=== PATIENT | female | born 1985 | race Two or more races ===

== ENCOUNTER 2018-02-03 02:01 | Emergency (ER) | payer OTHER ==
[2018-02-03 02:23] VITALS: BP 117/79; PULSE 95; TEMP 98.3; BMI 35.4
[2018-02-03 02:25] LABS: URINE APPEARANCE CLEAR; URINE BILIRUBIN NEGATIVE (<2.0 mg/dL); URINE BLOOD NEGATIVE (NEGATIVE); URINE COLOR YELLOW; URINE GLUCOSE (UA) NEGATIVE (NEGATIVE); URINE KETONE NEGATIVE (NEGATIVE); URINE NITRITE NEGATIVE (NEGATIVE); URINE PROTEIN NEGATIVE (NEGATIVE); URINE UROBILINOGEN NEGATIVE mg/dL (0.2-1.0)
[2018-02-03 02:27] LABS: HCG,QUALITATIVE URINE NEGATIVE; URINE LEUK ESTERASE 1+ (NEGATIVE)
--- NOTE | 2018-02-03 02:29 | PDOC ---
History of Present Illness - General Chief Complaint: Pain, Acute Stated Complaint: ABD PAIN Time Seen by Provider: 02/03/18 02:13 History Source: Patient - History of Present Illness Initial Comments: 02/03/18 02:27 32 year old female with the rigth side pain x 1 days. denies NVD 02/03/18 04:12 Past History - Past Medical History Allergies/Adverse Reactions: Allergies Allergy/AdvReac Type Severity Reaction Status Date / Time No Known Allergies Allergy Verified 02/03/18 02:10 Home Medications: Ambulatory Orders Cephalexin Monohydrate [Keflex -] 500 mg PO BID #20 capsule 02/03/18 COPD: No - Suicide/Smoking/Psychosocial Hx Smoking History: Never smoked Review of Systems - Review of Systems Able to Perform ROS?: Yes Is the patient limited Lao proficient: No Constitutional: No: Symptoms Reported, See HPI, Chills, Diaphoresis, Fever, Loss of Appetite, Malaise, Night Sweats, Weakness, Weight Stable, Unintentional Wgt. Loss, Unexplained wgt Loss, Other ABD/GI: Yes: Abdominal cramping. No: Symptoms Reported, See HPI, Abdominal Distended, Abd. Pain w/ defecation, Blood Streaked Bowels, Constipated, Diarrhea , Difficulty Swallowing, Nausea, Poor Appetite, Poor Fluid Intake, Rectal Bleeding, Vomiting, Indigestion, Tarry Stools, Other *Physical Exam - Vital Signs Last Vital Signs Temp Pulse Resp BP Pulse Ox 98.3 F 95 H 18 117/79 99 02/03/18 02:10 02/03/18 02:10 02/03/18 02:10 02/03/18 02:10 02/03/18 02:10 - Physical Exam General Appearance: Yes: Appropriately Dressed Respiratory/Chest: positive: Lungs Clear, Normal Breath Sounds Gastrointestinal/Abdominal: positive: Normal Bowel Sounds, Tender (right upper quadrant tenderness), Soft Musculoskeletal: positive: Normal Inspection Extremity: positive: Normal Capillary Refill, Normal Inspection, Normal Range of Motion Integumentary: positive: Normal Color, Dry, Warm Neurologic: positive: Fully Oriented, Alert, Normal Mood/Affect ED Treatment Course - LABORATORY CBC & Chemistry Diagram: 02/03/18 03:08 02/03/18 03:08 Progress Note - Progress Note Progress Note: A : UTI P: CBC CMP UA UCX *DC/Admit/Observation/Transfer Diagnosis at time of Disposition: UTI (urinary tract infection) Qualifiers: Urinary tract infection type: acute cystitis Hematuria presence: without hematuria Qualified Code(s): N30.00 - Acute cystitis without hematuria Abdominal pain Qualifiers: Abdominal location: unspecified location Qualified Code(s): R10.9 - Unspecified abdominal pain - Discharge Dispostion Disposition: HOME - Prescriptions Prescriptions: Cephalexin Monohydrate [Keflex -] 500 mg PO BID #20 capsule - Referrals Referrals: Linsey Mcgee [Primary Care Provider] - Call tomorrow - Patient Instructions Printed Discharge Instructions: Urinary Tract Infection Additional Instructions: drink plenty of fluids. take cephalexin as prescribed follow up with your doctor as soon as possible. return to the ER of symptomf worsen - Post Discharge Activity
[2018-02-03 02:31] LABS: EPI CELLS MODERATE /HPF (FEW); URINE BACTERIA RARE /hpf (NONE SEEN); URINE MUCUS FEW
[2018-02-03 03:14] LABS: BASO % 0.6 % (0-2.0); HEMATOCRIT 36.9 % (32.4-45.2); HEMOGLOBIN 12.4 GM/dL (10.7-15.3); LYMPH % 30.6 % (8-40); MCHC 33.7 g/dl (32.0-36.0); MEAN CELL VOLUME 80.2 fl (80-96); MEAN PLT VOLUME 8.3 fl (7.5-11.1); MONO % 5.9 % (3.8-10.2); NEUT % 55.9 % (42.8-82.8); PLATELET COUNT 272 K/MM3 (134-434); RDW 16.9 % (11.6-15.6); WHITE BLOOD COUNT 9.9 K/mm3 (4.0-10.0)
[2018-02-03] MEDS ORDERED: IBUPROFEN 600 MG TABLET (FP) PO ONE ×2 (03:52→04:17)
--- NOTE | 2018-02-03 03:56 | PDOC ---
*Physical Exam - Vital Signs Last Vital Signs Temp Pulse Resp BP Pulse Ox 98.3 F 95 H 18 117/79 99 02/03/18 02:10 02/03/18 02:10 02/03/18 02:10 02/03/18 02:10 02/03/18 02:10 ED Treatment Course - LABORATORY CBC & Chemistry Diagram: 02/03/18 03:08 02/03/18 03:08 - ADDITIONAL ORDERS Additional order review: Laboratory Results 02/03/18 02:19 Urine Color Yellow Urine Appearance Clear Urine pH 6.0 Ur Specific [place] 1.025 Urine Protein Negative Urine Glucose (UA) Negative Urine Ketones Negative Urine Blood Negative Urine Nitrite Negative Urine Bilirubin Negative Urine Urobilinogen Negative Ur Leukocyte Esterase 1+ H Urine WBC (Auto) 20 Urine RBC (Auto) 2 Ur Epithelial Cells Moderate Urine Bacteria Rare Urine Mucus Few Urine HCG, Qual Negative 02/03/18 03:08 RBC 4.60 MCV 80.2 MCHC 33.7 RDW 16.9 H MPV 8.3 Neutrophils % 55.9 Lymphocytes % 30.6 Monocytes % 5.9 Eosinophils % 7.0 H Basophils % 0.6 Medical Decision Making - Medical Decision Making 02/03/18 03:56 agree with care from SUREKHA Loja *DC/Admit/Observation/Transfer Diagnosis at time of Disposition: UTI (urinary tract infection), Abdominal pain - Discharge Dispostion Disposition: HOME - Prescriptions Prescriptions: Cephalexin Monohydrate [Keflex -] 500 mg PO BID #20 capsule - Referrals Referrals: Linsey Mcgee [Primary Care Provider] - Call tomorrow - Patient Instructions Printed Discharge Instructions: Urinary Tract Infection Additional Instructions: drink plenty of fluids. take cephalexin as prescribed follow up with your doctor as soon as possible. return to the ER of symptomf worsen - Post Discharge Activity
[2018-02-03 04:02] LABS: ALBUMIN 3.8 g/dl (3.4-5.0); ANION GAP 10 (8-16); BLOOD UREA NITROGEN 15 mg/dL (7-18); CALCIUM 8.5 mg/dL (8.5-10.1); CHLORIDE 103 mmol/L (98-107); CO2 28 mmol/L (21-32); CREATININE 0.8 mg/dL (0.55-1.02); GLUCOSE,RANDOM 103 mg/dL (74-106); POTASSIUM 3.7 mmol/L (3.5-5.1); SGOT/AST 23 U/L (15-37); SODIUM 141 mmol/L (136-145)
[2018-02-03 04:08] LABS: ALK PHOS 75 U/L (45-117); BILIRUBIN,TOTAL 0.2 mg/dL (0.2-1.0); SGPT/ALT 17 U/L (12-78); TOT PROT 7.8 g/dl (6.4-8.2)
[2018-02-03] MEDS ORDERED: NITROFURANTOIN MACROCRYSTAL 50 MG CAPSULE (FP) PO SCH (04:15)
[2018-02-03] MEDS ORDERED: CEPHALEXIN MONOHYDRATE 250 MG CAPSULE (FP) ONE (04:17)
[2018-02-03] MEDS ORDERED: CEPHALEXIN MONOHYDRATE 500 MG CAPSULE (UD) PO ONE (04:20)
== END 2018-02-03 04:21 | disposition home or self-care (01) ==
LOC: JER 02:01
DX: N39.0 Urinary tract infection, site not specified (principal)
CPT/HCPCS: 36415; 80053; 81003; 81015; 84703; 85025; 87086; 99282-25

== ENCOUNTER 2019-02-22 12:55 | Emergency (ER) | payer OTHER ==
[2019-02-22 13:04] VITALS: BP 127/63; PULSE 70; TEMP 98.1; BMI 36.8
--- NOTE | 2019-02-22 14:23 | PDOC ---
*Physical Exam - Vital Signs Last Vital Signs Temp Pulse Resp BP Pulse Ox 98.1 F 70 18 127/63 97 02/22/19 13:02 02/22/19 13:02 02/22/19 13:02 02/22/19 13:02 02/22/19 13:02 ED Treatment Course - LABORATORY CBC & Chemistry Diagram: 02/22/19 15:47 02/22/19 15:47 Medical Decision Making - Medical Decision Making 02/22/19 18:30 Ms Kimble presents to the ER with a concerning left neck mass Pt first noticed this 1 month ago, however it became painful yesterday 02/22/19 18:34 Laboratory Tests 02/22/19 02/22/19 02/22/19 15:19 15:47 15:47 WBC 9.2 Hgb 12.3 Hct 36.6 Plt Count 306 BUN 15 Creatinine 0.7 Serum , Qual Negative CT pending Signed out to overnight team *DC/Admit/Observation/Transfer Diagnosis at time of Disposition: Lymphadenopathy of head and neck - Discharge Dispostion Disposition: HOME Condition at time of disposition: Stable - Referrals Referrals: Joshua Pineda MD [Primary Care Provider] - - Patient Instructions Printed Discharge Instructions: DI for Lymphadenopathy Additional Instructions: Your CT scan today showed some nonspecific lymph nodes, unlikely that this is cancerous. Please use warm compresses to the area. He may take Tylenol 650 mg every 4 hours as needed for pain. Follow-up with her primary care doctor this week. Return to the ER for worsening pain, fevers, shortness of breath, body aches or if you have any changes in your symptoms. - Post Discharge Activity Forms/Work/School Notes: Back to Work
--- NOTE | 2019-02-22 14:48 | PDOC ---
History of Present Illness - General Chief Complaint: Pain Stated Complaint: SENT BY PCP. LUMP on neck Time Seen by Provider: 02/22/19 13:59 History Source: Patient - History of Present Illness Timing/Duration: other Past History - Past Medical History Allergies/Adverse Reactions: Allergies Allergy/AdvReac Type Severity Reaction Status Date / Time No Known Allergies Allergy Verified 02/22/19 13:03 Home Medications: Ambulatory Orders NK [No Known Home Medication] 02/22/19 COPD: No - Suicide/Smoking/Psychosocial Hx Smoking History: Never smoked Information on smoking cessation initiated: No Hx Alcohol Use: No Drug/Substance Use Hx: No Review of Systems - Review of Systems Constitutional: No: Chills, Fever, Unexplained wgt Loss Respiratory: No: Cough, Shortness of Breath Cardiac (ROS): No: Chest Pain ABD/GI: No: Nausea, Vomiting, Abdominal cramping : No: Dysuria, Flank Pain, Hematuria Neurological: No: Headache, Numbness, Dizziness *Physical Exam - Vital Signs Last Vital Signs Temp Pulse Resp BP Pulse Ox 98.1 F 70 18 127/63 97 02/22/19 13:02 02/22/19 13:02 02/22/19 13:02 02/22/19 13:02 02/22/19 13:02 - Physical Exam General Appearance: Yes: Appropriately Dressed. No: Apparent Distress HEENT: positive: Normal Voice, Other (no dental ttp/swellign or e/o abscess) Neck: positive: Supple, Other (significant fullness to L supraclavicular fossa, no sib ttp, no skin changes) Respiratory/Chest: positive: Lungs Clear, Normal Breath Sounds. negative: Respiratory Distress Integumentary: positive: Dry, Warm Neurologic: positive: Fully Oriented, Alert, Normal Mood/Affect ED Treatment Course - LABORATORY CBC & Chemistry Diagram: 02/22/19 15:47 02/22/19 15:47 Medical Decision Making - Medical Decision Making 02/22/19 14:48 33-year-old female, history of asthma, here for evaluation of neck mass. Patient states a month ago notice swelling of left neck above the clavicle that became painful yesterday. Denies any other symptoms including unexplained weight loss. Does have a family history of cancer. Denies tob use. Seen by her PMD for the first time today and was sent to the ED for further evaluation. Pt currently on antibiotics for left lower tooth ache, but states neck swelling started several weeks prior to that Started See exam L neck mass or unclear etiology Unlikely abscess/infxn given duration, r/o malignancy, no trauma -labs -CT 02/22/19 17:[address] pending 02/22/19 18:59 Signed out to WILL Logan pending CT *DC/Admit/Observation/Transfer Diagnosis at time of Disposition: Lymphadenopathy of head and neck - Discharge Dispostion Disposition: HOME Condition at time of disposition: Stable - Referrals Referrals: Joshua Pineda MD [Primary Care Provider] - - Patient Instructions Printed Discharge Instructions: DI for Lymphadenopathy Additional Instructions: Your CT scan today showed some nonspecific lymph nodes, unlikely that this is cancerous. Please use warm compresses to the area. He may take Tylenol 650 mg every 4 hours as needed for pain. Follow-up with her primary care doctor this week. Return to the ER for worsening pain, fevers, shortness of breath, body aches or if you have any changes in your symptoms. - Post Discharge Activity Forms/Work/School Notes: Back to Work
[2019-02-22 16:07] LABS: EOS % 7.1 % (0-4.5); HEMATOCRIT 36.6 % (32.4-45.2); HEMOGLOBIN 12.3 GM/dL (10.7-15.3); LYMPH % 32.3 % (8-40); MCH 27.7 pg (25.7-33.7); MCHC 33.6 g/dl (32.0-36.0); MEAN CELL VOLUME 82.5 fl (80-96); MEAN PLT VOLUME 8.7 fl (7.5-11.1); MONO % 5.6 % (3.8-10.2); PLATELET COUNT 306 K/MM3 (134-434); RBC 4.43 M/mm3 (3.60-5.2); RDW 17.1 % (11.6-15.6); WHITE BLOOD COUNT 9.2 K/mm3 (4.0-10.0)
[2019-02-22 16:59] LABS: ALBUMIN 3.8 g/dl (3.4-5.0); ALK PHOS 63 U/L (45-117); ANION GAP 6 MMOL/L (8-16); BILIRUBIN,TOTAL 0.3 mg/dL (0.2-1); BLOOD UREA NITROGEN 15 mg/dL (7-18); CALCIUM 8.8 mg/dL (8.5-10.1); CHLORIDE 104 mmol/L (98-107); CO2 29 mmol/L (21-32); CREATININE 0.7 mg/dL (0.55-1.3); GLUCOSE,RANDOM 87 mg/dL (74-106); LIPASE 140 U/L (73-393); POTASSIUM 4.2 mmol/L (3.5-5.1); SGOT/AST 24 U/L (15-37); SGPT/ALT 19 U/L (13-61); SODIUM 139 mmol/L (136-145)
--- NOTE | 2019-02-22 19:10 | PDOC ---
*Physical Exam - Vital Signs Last Vital Signs Temp Pulse Resp BP Pulse Ox 98.1 F 70 18 127/63 97 02/22/19 13:02 02/22/19 13:02 02/22/19 13:02 02/22/19 13:02 02/22/19 13:02 ED Treatment Course - LABORATORY CBC & Chemistry Diagram: 02/22/19 15:47 02/22/19 15:47 - ADDITIONAL ORDERS Additional order review: Laboratory Results 02/22/19 02/22/19 15:47 15:19 Sodium 139 Potassium 4.2 Chloride 104 Carbon Dioxide 29 Anion Gap 6 L BUN 15 Creatinine 0.7 Creat Clearance w eGFR 97.60 Random Glucose 87 Calcium 8.8 Total Bilirubin 0.3 AST 24 ALT 19 Alkaline Phosphatase 63 Total Protein 8.0 Albumin 3.8 Lipase 140 Serum , Qual Negative 02/22/19 15:47 RBC 4.43 MCV 82.5 MCHC 33.6 RDW 17.1 H MPV 8.7 Neutrophils % 54.0 Lymphocytes % 32.3 Monocytes % 5.6 Eosinophils % 7.1 H Basophils % 1.0 Medical Decision Making - Medical Decision Making 02/22/19 19:09 Sign out received from WILL Pelayo. Pt with R sided supraclavicular swelling. Pt currently in CT. 02/22/19 20:29 CT scan shows hyperplastic lymphnodes, most likely benign based on size. Lab work shows no leukocytosis. Will dc home with PCP follow up and supportive measures. I discussed the physical exam findings, ancillary test results and final diagnoses with the patient. I answered all of the patient's questions. The patient was satisfied with the care received and felt comfortable with the discharge plan and treatment plan. The Patient agrees to follow up with the primary care physician/specialist within 24-72 hours. Return precautions were given. *DC/Admit/Observation/Transfer Diagnosis at time of Disposition: Lymphadenopathy of head and neck - Discharge Dispostion Disposition: HOME Condition at time of disposition: Stable Decision to Admit order: No - Referrals Referrals: Joshua Pineda MD [Primary Care Provider] - - Patient Instructions Printed Discharge Instructions: DI for Lymphadenopathy Additional Instructions: Your CT scan today showed some nonspecific lymph nodes, unlikely that this is cancerous. Please use warm compresses to the area. He may take Tylenol 650 mg every 4 hours as needed for pain. Follow-up with her primary care doctor this week. Return to the ER for worsening pain, fevers, shortness of breath, body aches or if you have any changes in your symptoms. - Post Discharge Activity Forms/Work/School Notes: Back to Work
== END 2019-02-22 20:46 | disposition home or self-care (01) ==
LOC: JER 12:55
DX: R59.0 Localized enlarged lymph nodes (principal); J45.909 Unspecified asthma, uncomplicated
CPT/HCPCS: 36415; 70491-TC; 80053; 83690; 84703; 85025; 87389; 99284-25

== ENCOUNTER → 2021-02-24 | Emergency (ER) | payer OTHER ==
[~2021-02-24] MED LIST: SODIUM CHLORIDE 500 ML IV STA
[2021-02-24 05:21] VITALS: TEMP 98.1; BMI 35.1
[2021-02-24 05:59] VITALS: PULSE 96
[2021-02-24 06:00] VITALS: BP 145/91
[2021-02-24 06:27] LABS: BASO % 0.6 % (0-2.0); EOS % 2.9 % (0-4.5); HEMOGLOBIN 11.7 GM/dL (10.7-15.3); LYMPH % 17.7 % (8-40); MCH 27.6 pg (25.7-33.7); MCHC 34.3 g/dl (32.0-36.0); MEAN CELL VOLUME 80.4 fl (80-96); MEAN PLT VOLUME 8.7 fl (7.5-11.1); MONO % 4.4 % (3.8-10.2); NEUT % 74.4 % (42.8-82.8); PLATELET COUNT 328 K/MM3 (134-434); RBC 4.23 M/mm3 (3.60-5.2); RDW 16.4 % (11.6-15.6); WHITE BLOOD COUNT 11.5 K/mm3 (4.0-10.0)
[2021-02-24 07:02] LABS: ALBUMIN 3.7 g/dl (3.4-5.0); BLOOD UREA NITROGEN 10.9 mg/dL (7-18); CALCIUM 9.3 mg/dL (8.5-10.1)
[2021-02-24 07:05] LABS: CREATININE 0.8 mg/dL (0.55-1.3)
[2021-02-24 07:07] LABS: BILIRUBIN,TOTAL 0.4 mg/dL (0.2-1)
== END | disposition home or self-care (01) ==
LOC: JER 04:57
PROC: 3E0337Z Introduction of Electrolytic and Water Balance Substance into Peripheral Vein, Percutaneous Approach (ICD-10-PCS; principal; 2021-02-24)
DX: R42 Dizziness and giddiness (principal); R19.7 Diarrhea, unspecified
CPT/HCPCS: 36415; 80053; 84703; 85025; 99284-25

== ENCOUNTER 2021-02-25 12:55 | Emergency (ER) | payer OTHER ==
[2021-02-25 13:03] VITALS: BP 133/87; PULSE 91; TEMP 98.9; BMI 37.5
== END 2021-02-25 16:00 | disposition home or self-care (01) ==
LOC: JER 12:55
DX: R42 Dizziness and giddiness (principal)
CPT/HCPCS: 93005; 93010; 99284-25

== ENCOUNTER 2021-05-23 16:19 | Emergency (ER) | payer OTHER ==
[2021-05-23 16:31] VITALS: BP 127/79; PULSE 93; TEMP 98.3; BMI 28.9
[2021-05-23 18:25] LABS: URINE BARBITURATES NEGATIVE (NEGATIVE)
[2021-05-23 18:26] LABS: PHENCYCLIDINE,URINE NEGATIVE (NEGATIVE)
[2021-05-23 18:29] LABS: COCAINE, UR NEGATIVE (NEGATIVE); METHADONE, UR NEGATIVE (NEGATIVE); OPIATES, URI NEGATIVE (NEGATIVE); URINE AMPHETAMINES NEGATIVE (NEGATIVE); URINE BENZODIAZEPINES NEGATIVE (NEGATIVE)
== END 2021-05-23 17:49 | disposition home or self-care (01) ==
LOC: JERFT 16:19 → JER 16:19 → JERFT 17:49
DX: Z02.83 Encounter for blood-alcohol and blood-drug test (principal)
CPT/HCPCS: 80307; 99283-25

== ENCOUNTER 2021-09-02 00:56 | Emergency (ER) | payer OTHER ==
[2021-09-02 01:13] VITALS: BP 121/86; PULSE 74; TEMP 98.1; BMI 34.7
[2021-09-02] MEDS ORDERED: MAG HYDROX/AL HYDROX/SIMETH 30 ML UNIT-DOSE CUP PO ONE (02:08)
[2021-09-02] MEDS ORDERED: LIDOCAINE VISCOUS 2% ORAL/TOP 15 ML UNIT-DOSE CUP MM ONE (02:08)
[2021-09-02] MEDS ORDERED: FAMOTIDINE 10 MG TABLET PO ONE (02:08)
[2021-09-02] MEDS ORDERED: FAMOTIDINE 20 MG TABLET ONE (02:09)
[2021-09-02] MEDS ORDERED: MAG HYDROX/AL HYDROX/SIMETH 30 ML UNIT-DOSE CUP ONE (02:10)
[2021-09-02] MEDS ORDERED: LIDOCAINE VISCOUS 2% ORAL/TOP 15 ML UNIT-DOSE CUP ONE (02:12)
[2021-09-02] MEDS ORDERED: SUCRALFATE 1 GM TABLET (FP) PO ONE (02:53)
== END 2021-09-02 02:58 | disposition home or self-care (01) ==
LOC: JER 00:56
DX: K21.00 Gastro-esophageal reflux disease with esophagitis, without bleeding (principal)
CPT/HCPCS: 93005; 93010; 99283-25

== ENCOUNTER 2021-09-09 12:03 | Emergency (ER) | payer OTHER ==
[2021-09-09 12:34] VITALS: TEMP 98; BMI 29.2
[2021-09-09 17:05] VITALS: BP 118/64; PULSE 65
== END 2021-09-09 17:04 | disposition home or self-care (01) ==
LOC: JER 12:03
DX: J06.9 Acute upper respiratory infection, unspecified (principal)
CPT/HCPCS: 87804; 99283-25; C9803; U0003; U0005

== ENCOUNTER 2022-01-06 22:22 | Emergency (ER) | payer OTHER ==
[2022-01-06 22:25] VITALS: BP 134/76; PULSE 96; TEMP 97.4; BMI 34.7
[2022-01-06] MEDS ORDERED: ACETAMINOPHEN 500 MG TABLET (FP) PO ONE (22:52)
[2022-01-06] MEDS ORDERED: SODIUM CHLORIDE 0.9% 1000 ML INFUS.BAG IV ONE (22:52)
[2022-01-06] MEDS ORDERED: ACETAMINOPHEN 500 MG TABLET (FP) ONE (23:05)
[2022-01-07 00:23] LABS: BASO % 0.7 % (0-2.0); EOS % 6.9 % (0-4.5); HEMATOCRIT 32.1 % (32.4-45.2); HEMOGLOBIN 11.1 GM/dL (10.7-15.3); LYMPH % 31.7 % (8-40); MCH 26.8 pg (25.7-33.7); MCHC 34.6 g/dl (32.0-36.0); MEAN CELL VOLUME 77.5 fl (80-96); MONO % 6.7 % (3.8-10.2); PLATELET COUNT 273 10^3/uL (134-434); RBC 4.14 M/mm3 (3.60-5.2); RDW 19.5 % (11.6-15.6); WHITE BLOOD COUNT 7.2 K/mm3 (4.0-10.0)
[2022-01-07 00:36] LABS: CALCIUM 8.3 mg/dL (8.5-10.1)
[2022-01-07 00:37] LABS: ALBUMIN 3.8 g/dl (3.4-5.0); BLOOD UREA NITROGEN 13.3 mg/dL (7-18)
[2022-01-07 00:40] LABS: CREATININE 0.8 mg/dL (0.55-1.3)
[2022-01-07 00:41] LABS: BILIRUBIN,TOTAL 0.2 mg/dL (0.2-1); TOT PROT 7.7 g/dl (6.4-8.2)
== END 2022-01-07 01:48 | disposition left against medical advice (07) ==
LOC: JER 22:22
DX: R20.2 Paresthesia of skin (principal); R07.89 Other chest pain
CPT/HCPCS: 36415; 80053; 84443; 84484; 84703; 85025; 99284-25

== ENCOUNTER 2022-06-10 15:59 | Emergency (ER) | payer OTHER ==
[2022-06-10 16:17] VITALS: BP 127/78; PULSE 104; RESP 18; TEMP 98; BMI 32.0
[2022-06-10] MEDS ORDERED: ACETAMINOPHEN 325 MG TABLET (FP) PO ONE (16:52)
[2022-06-10] MEDS ORDERED: ACETAMINOPHEN 500 MG TABLET (FP) ONE (17:09)
[2022-06-10 17:19] LABS: BASO % 0.5 % (0-2.0); EOS % 5.7 % (0-4.5); HEMATOCRIT 31.6 % (32.4-45.2); HEMOGLOBIN 10.8 GM/dL (10.7-15.3); LYMPH % 25.3 % (8-40); MCH 25.9 pg (25.7-33.7); MCHC 34.1 g/dl (32.0-36.0); MEAN CELL VOLUME 76.1 fl (80-96); MEAN PLT VOLUME 7.8 fl (7.5-11.1); MONO % 5.9 % (3.8-10.2); NEUT % 62.6 % (42.8-82.8); PLATELET COUNT 276 10^3/uL (134-434); RBC 4.15 M/mm3 (3.60-5.2); RDW 21.6 % (11.6-15.6); WHITE BLOOD COUNT 7.6 K/mm3 (4.0-10.0)
[2022-06-10 17:42] LABS: CHLORIDE 104 mmol/L (98-107); SODIUM 141 mmol/L (136-145)
[2022-06-10 17:43] LABS: CALCIUM 8.8 mg/dL (8.5-10.1)
[2022-06-10 17:44] LABS: ANION GAP 7 MMOL/L (8-16); BLOOD UREA NITROGEN 12.2 mg/dL (7-18); CO2 30 mmol/L (21-32); GLUCOSE,RANDOM 97 mg/dL (74-106)
[2022-06-10 17:47] LABS: CREATININE 0.8 mg/dL (0.55-1.3); INR 1.18 (0.83-1.09); PROTHROMBIN TIME (PATIENT) 13.6 SEC (9.7-13.0)
[2022-06-10 17:55] LABS: ANISOCYTOSIS 2+; MACROCYTOSIS 0; TARGET CELLS 1+; TEAR DROP CELLS 1+
[2022-06-10] MEDS ORDERED: morphine CARPU-JECT 2 MG/1 ML DISP.SYRIN IM ONE (18:02)
[2022-06-10] MEDS ORDERED: KETOROLAC TROMETHAMINE 30 MG/1 ML VIAL IM ONE (18:02)
[2022-06-10] MEDS ORDERED: IBUPROFEN 600 MG TABLET (FP) PO ONE ×2 (18:07)
[2022-06-10 19:01] LABS: EPI CELLS >36 /uL (0-25.1); HYALINE CASTS 2 /uL (0-3.1); PH,URINE >= 9.0 (5.0-8.0); URINE APPEARANCE TURBID; URINE BACTERIA 671 /uL (0-1359); URINE BILIRUBIN NEGATIVE (NEGATIVE); URINE COLOR ORANGE; URINE GLUCOSE (UA) NEGATIVE (NEGATIVE); URINE KETONE NEGATIVE (NEGATIVE); URINE LEUK ESTERASE 1+ (NEGATIVE); URINE NITRITE NEGATIVE (NEGATIVE); URINE PROTEIN 2+ (NEGATIVE); URINE RBC 4087 /uL (0-23.9); URINE WBC 50 /uL (0-25.8)
== END 2022-06-10 20:27 | disposition home or self-care (01) ==
LOC: JER 15:59
PROC: 3E0233Z Introduction of Anti-inflammatory into Muscle, Percutaneous Approach (ICD-10-PCS; principal; 2022-06-10)
PROC: 3E023NZ Introduction of Analgesics, Hypnotics, Sedatives into Muscle, Percutaneous Approach (ICD-10-PCS; 2022-06-10)
DX: R10.32 Left lower quadrant pain (principal)
CPT/HCPCS: 36415; 76830-TC; 80048; 81003; 84702; 84703; 85025; 85610; 85730; 86850; 86900; 86901; 87086; 87491; 87591; 99284-25

== ENCOUNTER 2023-06-17 15:51 | Emergency (ER) | payer OTHER ==
[2023-06-17 16:07] VITALS: BP 134/78; PULSE 80; RESP 18; TEMP 98.5; BMI 31.5
[2023-06-17] MEDS ORDERED: METOCLOPRAMIDE HCL INJECTION 10 MG/2 ML VIAL IVPB ONE (16:49)
[2023-06-17] MEDS ORDERED: ACETAMINOPHEN 325 MG TABLET (FP) PO ONE (16:49)
[2023-06-17] MEDS ORDERED: SODIUM CHLORIDE 0.9% 500 ML INFUS.BAG IV ONE (16:49)
[2023-06-17] MEDS ORDERED: METOCLOPRAMIDE HCL INJECTION 10 MG/2 ML VIAL ONE (17:12)
[2023-06-17] MEDS ORDERED: ACETAMINOPHEN 325 MG TABLET (FP) ONE (17:12)
[2023-06-17 17:58] LABS: BASO % 0.7 % (0-2.0); EOS % 6.6 % (0-4.5); HEMATOCRIT 33.8 % (32.4-45.2); HEMOGLOBIN 10.9 GM/dL (10.7-15.3); LYMPH % 32.9 % (8-40); MCH 24.3 pg (25.7-33.7); MCHC 32.1 g/dl (32.0-36.0); MEAN CELL VOLUME 75.9 fl (80-96); MEAN PLT VOLUME 8.1 fl (7.5-11.1); MONO % 6.5 % (3.8-10.2); NEUT % 53.3 % (42.8-82.8); PLATELET COUNT 292 10^3/uL (134-434); RBC 4.46 M/mm3 (3.60-5.2); RDW 19.2 % (11.6-15.6); WHITE BLOOD COUNT 6.6 K/mm3 (4.0-10.0)
[2023-06-17 18:14] LABS: POTASSIUM 4.1 mmol/L (3.5-5.1)
[2023-06-17 18:16] LABS: ALBUMIN 4.1 g/dl (3.4-5.0); CALCIUM 8.9 mg/dL (8.5-10.1)
[2023-06-17 18:17] LABS: BLOOD UREA NITROGEN 12.2 mg/dL (7-18)
[2023-06-17 18:20] LABS: CREATININE 0.7 mg/dL (0.55-1.3)
[2023-06-17 18:21] LABS: BILIRUBIN,TOTAL 0.3 mg/dL (0.2-1); TOT PROT 8.2 g/dl (6.4-8.2)
== END 2023-06-17 18:45 | disposition left against medical advice (07) ==
LOC: JER 15:51
DX: R51.9 Headache, unspecified (principal); R42 Dizziness and giddiness; Z20.822 Contact with and (suspected) exposure to COVID-19
CPT/HCPCS: 0241U-QW; 36415; 80053; 84703; 85025; 99283-25